=== PATIENT | male | born 1980 | race Caucasian/White ===

== ENCOUNTER 2023-01-27 12:21 | Emergency (ER) | payer OTHER ==
[~2023-01-27] VITALS: Ht 180.3 cm; Wt 94.3 kg
[2023-01-27] MEDS ORDERED: KETO10TA2 PO (16:04)
[2023-01-27] MEDS ORDERED: CYCLOBENZAPRINE10 MG PO (16:04)
== END 2023-01-27 20:04 | disposition home or self-care (01) ==
LOC: ER 12:21
DX: S09.8XXA Other specified injuries of head, initial encounter (principal); V43.52XA Car driver injured in collision with other type car in traffic accident, initial encounter; Y93.89 Activity, other specified; Y92.413 State road as the place of occurrence of the external cause; M54.2 Cervicalgia; S49.81XA Other specified injuries of right shoulder and upper arm, initial encounter